=== PATIENT | female | born 1990 | race Caucasian/White ===

== ENCOUNTER → 2017-11-21 | Outpatient (CLI) | payer OTHER ==
[~2017-11-21] MED LIST: ACET325 PO; ALPR.25 PO; BUPR75 PO; Bactrim Ds Tab1 EACH PO; CEPH500 PO; CLIN300 PO; CRUTCH3 USE; CYCL10 PO; Cleocin HCl300 MG PO; FAMO20 PO; FLUC150A PO; HYDACE5 PO; HYDPAM50 PO; IBUP600 PO; IBUP800 PO; Keflex500 MG PO; METH40; Mobic15 MG PO; NAPR500 PO; NICO21TP TOP; NYQUIL; Norco 5-325 Ta1 EACH PO; PRED20 PO; Percocet 10-321 EACH PO; Pyridium200 MG PO; RXPROCODSY PO; SULTRIDS PO; TRAZ150T57; TRAZ150T57 PO; Vibramycin100 MG PO
[2017-11-23 13:33] LABS: MDA Not Detected (NOTDET); MDEA Not Detected (NOTDET); MDMA Not Detected (NOTDET)
[2017-11-23 14:20] LABS: Codeine 749 ng/mL (NOTDET); Hydrocodone Not Detected (NOTDET); Hydromorphone 79 ng/mL (NOTDET); Morphine >3000 ng/mL (NOTDET); Norhydrocodone Not Detected (NOTDET); Noroxycodone Not Detected (NOTDET)
== END ==
LOC: LAB 09:45 → LAB SHORT 09:45
PROVIDERS: Family Medicine
DX: F11.20 Opioid dependence, uncomplicated (principal); F19.90 Other psychoactive substance use, unspecified, uncomplicated
CPT/HCPCS: G0480

== ENCOUNTER → 2020-08-07 | Outpatient (CLI) | payer OTHER | END | disposition home or self-care (01) | LOC: LAB 19:46 → LAB SHORT 19:46 | DX: N39.0 Urinary tract infection, site not specified (principal) | CPT/HCPCS: 87077; 87086; 87186 ==

== ENCOUNTER → 2022-11-12 | Outpatient (CLI) | payer OTHER | END | disposition home or self-care (01) | LOC: LAB 16:20 → LAB SHORT 16:20 | DX: N30.00 Acute cystitis without hematuria (principal); R82.998 Other abnormal findings in urine | CPT/HCPCS: 87077; 87086; 87186 ==

== ENCOUNTER → 2023-05-19 | Outpatient (CLI) | payer OTHER | LOC: LAB SHORT 09:15 → LAB 09:15 | DX: J02.9 Acute pharyngitis, unspecified (principal) | CPT/HCPCS: 87081 ==

== ENCOUNTER → 2024-08-10 | Outpatient (CLI) | payer OTHER ==
[2024-08-12 16:53] LABS: C. TRACHOMATIS BY TMA,THINPREP Negative (Negative); N. GONORRHOEAE BY TMA,THINPREP Negative (Negative); SPECIMEN SOURCE Cervical
== END | disposition home or self-care (01) ==
LOC: LAB 17:04 → LAB SHORT 17:04
PROVIDERS: Nurse Practitioner Family
DX: Z12.4 Encounter for screening for malignant neoplasm of cervix (principal); Z11.51 Encounter for screening for human papillomavirus (HPV); Z11.3 Encounter for screening for infections with a predominantly sexual mode of transmission; Z11.8 Encounter for screening for other infectious and parasitic diseases
CPT/HCPCS: 87491; 87591